=== PATIENT | male | born 1990 | race African-American/Black ===

== ENCOUNTER 2016-08-24 07:09 | Emergency (ER) | payer MEDICAID ==
[~2016-08-24] VITALS: Ht 172.7 cm; Wt 72.5 kg
[~2016-08-24 07:09] MED LIST: CYCL-36 PO
[2016-08-24 07:11] VITALS: BP 138/76; PULSE 64; RESP 15; TEMP 98.1; O2SAT 97
[2016-08-24] MEDS ORDERED: CYCL1TAB29 PO (08:04)
[2016-08-24] MEDS ORDERED: IBUP800T23 PO (08:04)
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
== END 2016-08-24 08:26 | disposition home or self-care (01) ==
LOC: NEPB 07:09
DX: S66.811A Strain of other specified muscles, fascia and tendons at wrist and hand level, right hand, initial encounter (principal); W51.XXXA Accidental striking against or bumped into by another person, initial encounter; Y93.89 Activity, other specified; Y92.9 Unspecified place or not applicable; Z72.0 Tobacco use
CPT/HCPCS: 99283

== ENCOUNTER 2017-02-04 08:40 | Emergency (ER) | payer MEDICAID, OTHER ==
[~2017-02-04 08:40] MED LIST changes: +CYCL1TAB29 PO; +IBUP800T23 PO
[2017-02-04] MEDS ORDERED: TETANUS/DIPHTHERIA TOXOID ADULT 0.5 ML VIAL IM ONE (09:30)
[2017-02-04] MEDS ORDERED: IBUPROFEN 800 MG TAB PO ONE (09:30)
[2017-02-04] MEDS ORDERED: CEPH-460 PO (09:33)
[2017-02-04] MEDS ORDERED: IBUP-232 PO (09:33)
--- NOTE | 2017-02-04 09:33 | PD ---
HPI Chief Complaint: Laceration/Skin Injury Time Seen by Provider: 09:31 Travel History International Travel<30 days: No Contact w/Intl Traveler<30days: No Traveled to known affect area: No History of Present Illness HPI 26-year-old male presents to department for evaluation of a laceration to the right wrist sustained when he picked up a fiberglass TV. Patient reports pain at site. No alterations in sensation. Pain exacerbated with movement. No other symptoms to report. He is uncertain of his tetanus status. [facility] Past Medical History Medical History: Denies Significant Hx Diminished Hearing: No Immunizations Current: Yes Past Surgical History Other Surgery: Yes (LACERATION REPAIR TO L LEG AND HEAD ) Social History Alcohol Use: Yes (OCC) Tobacco Use: Yes (07/27 PPD) Substance Use: Yes (marijuana) Allergies-Medications (Allergen,Severity, Reaction): Coded Allergies: Shrimp (Verified Allergy, Severe, SWELLING, 08/24/16) Reported Meds & Prescriptions Reported Meds & Active Scripts Active Ibuprofen 600 Mg Tab 600 Mg PO Q8HR PRN Keflex (Cephalexin) 500 Mg Cap 500 Mg PO Q6H 5 Days Flexeril (Cyclobenzaprine HCl) 10 Mg Tab 10 Mg PO TID PRN 7 Days Ibuprofen 800 Mg Tab 800 Mg PO Q6HR PRN Flexeril (Cyclobenzaprine HCl) 10 Mg Tab 10 Mg PO TID PRN Review of Systems Except as stated in HPI: all other systems reviewed are Neg Physical Exam Narrative GENERAL: Well-nourished, well-developed male patient in no acute distress SKIN: Focused skin assessment warm/dry. One and half centimeter laceration on the anterior aspect of the lateral right wrist. Bleeding is controlled. HEAD: Normocephalic. EYES: No scleral icterus. No injection or drainage. NECK: Supple, trachea midline. No JVD or lymphadenopathy. CARDIOVASCULAR: Regular rate and rhythm without murmurs, gallops, or rubs. RESPIRATORY: Breath sounds equal bilaterally. No accessory muscle use. MUSCULOSKELETAL: No cyanosis, or edema. Patient has full flexion and extension of all the digits of the right upper extremity. No limitations in range of motion of the wrist. Sensation intact his affected extremity. Cap refill within normal limits. BACK: Nontender without obvious deformity. No CVA tenderness. Data Data Orders Tetanus/Diphtheria Tox Adult (Tetanus/Di (02/04/17 09:30) Ibuprofen (Motrin) (02/04/17 09:30) MDM Medical Decision Making Medical Screen Exam Complete: Yes Emergency Medical Condition: Yes Medical Record Reviewed: Yes Differential Diagnosis Laceration superficial versus deep versus tendon injury versus abrasion versus avulsion Narrative Course 26-year-old male presents to emergency department for evaluation of right wrist injury. Patient does have a 1-1/2 cm laceration. This was cleansed and approximated. Patient tolerated this well. He'll be discharged home with Keflex as this was done on a garbage route. He agrees return immediately if any acute worsening symptoms Procedures Procedure Narrative LACERATION LOCATION: Right wrist LENGTH: 1-1/2 cm NUMBER OF STITCHES/RONEL: 2 ronel REPAIR: The area of the laceration was prepped with Betadine and sterilely draped The wound was copiously irrigated and explored without evidence of foreign body, tendon injury or neurovascular injury. The wound was closed using ronel. This was a [single layer repair. A sterile dressing was applied. The patient was advised to keep the dressing clean and dry. Patient tolerated the procedure well. Sepsis Criteria Sepsis Criteria (SIRS+source): Infect source susp/known Diagnosis Primary Impression: Wrist laceration Qualified Code: S61.511A - Wrist laceration, right, initial encounter Referrals: Primary Care Physician Patient Instructions: General Instructions, Laceration (ED), Staple Care (ED) Departure Forms: Tests/Procedures, Work Release Enter return to work date: Feb 05, 2017 Additional Instructions: Keep the area clean and dry Keep it covered when you are at work You may shower Wash it twice a day with warm soapy water, pat it dry, apply antibiotic ointment and a Band-Aid Return immediately to the emergency department with any acute worsening of symptoms. Ronel are to be removed in 10 days. Med/Other Pt SpecificInfo: Prescription(s) given Scripts Ibuprofen 600 Mg [id number] Mg PO Q8HR PRN (PAIN) #30 TAB Ref 0 Prov:Yuridia Atkinson 02/04/17 Cephalexin (Keflex)500 Mg [id number] Mg PO Q6H 5 Days Ref 0 Prov:Yuridia Atkinson 02/04/17 Disposition: 01 DISCHARGE HOME Condition: Stable Yuridia Atkinson Feb 04, 2017 09:33
== END 2017-02-04 09:53 | disposition home or self-care (01) ==
LOC: NEPK 08:40
DX: S61.511A Laceration without foreign body of right wrist, initial encounter (principal); F17.200 Nicotine dependence, unspecified, uncomplicated; Z79.899 Other long term (current) drug therapy; Z23 Encounter for immunization; W22.8XXA Striking against or struck by other objects, initial encounter
CPT/HCPCS: 12001; 90471; 90714

== ENCOUNTER 2017-02-16 13:24 | Emergency (ER) | payer MEDICAID, OTHER ==
[~2017-02-16] VITALS: Ht 170.2 cm; Wt 76.0 kg
[~2017-02-16 13:24] MED LIST changes: +CEPH-460 PO; +IBUP-232 PO
[2017-02-16 13:26] VITALS: BP 123/78; PULSE 73; RESP 15; TEMP 98.7; O2SAT 100
--- NOTE | 2017-02-16 14:16 | PD ---
HPI Chief Complaint: Wound/Suture/Staple Re-Check Time Seen by Provider: 14:00 Travel History International Travel<30 days: No Contact w/Intl Traveler<30days: No Traveled to known affect area: No History of Present Illness HPI 26-year-old male percents to have ronel removed from his right upper extremity. Patient was treated in the emergency department approximately 10 days ago. He has no current complaint he is just here for suture removal. [facility] Past Medical History Medical History: Denies Significant Hx Diminished Hearing: No Immunizations Current: Yes Tetanus Vaccination: < 5 Years Influenza Vaccination: No Past Surgical History Other Surgery: Yes (LACERATION REPAIR TO L LEG AND HEAD ) Social History Alcohol Use: Yes (OCC) Tobacco Use: Yes (1/2 PPD) Substance Use: Yes (marijuana) Allergies-Medications (Allergen,Severity, Reaction): Coded Allergies: Shrimp (Verified Allergy, Severe, SWELLING, 02/16/17) Reported Meds & Prescriptions Reported Meds & Active Scripts Active No Active Prescriptions or Reported Medications Review of Systems Except as stated in HPI: all other systems reviewed are Neg Physical Exam Narrative GENERAL: Well-nourished, well-developed patient. SKIN: Focused skin assessment warm/dry. 2 cm well-healed laceration right upper extremity distal aspect of forearm with [address] No evidence of infection. HEAD: Normocephalic. EYES: No scleral icterus. No injection or drainage. NECK: Supple, trachea line. Musculoskeletal: Right upper extremity 2 cm well-healed laceration right upper extremity distal aspect of forearm with [address] No evidence of infection. Data Data Last Documented VS Vital Signs Date Time Temp Pulse Resp B/P Pulse Ox O2 Delivery O2 Flow Rate FiO2 02/16/17 13:26 98.7 73 15 123/78 100 MDM Medical Decision Making Medical Screen Exam Complete: Yes Emergency Medical Condition: Yes Differential Diagnosis Suture removal, wound recheck, clinically ruled out wound infection Narrative Course 26-year-old male percents to have ronel removed from his right upper extremity. Patient was treated in the emergency department approximately 10 days ago. He has no current complaint he is just here for suture removal. 2 ronel were removed. The wound edges are well approximated and healed. No evidence of wound infection. Procedures Procedure Narrative Staple removal performed and right upper extremity. 2 ronel removed. Wound edges well approximated and healed. No evidence of infection. Diagnosis Primary Impression: Removal of staple Referrals: Primary Care Physician Scripts No Active Prescriptions or Reported Meds Disposition: 01 DISCHARGE HOME Condition: Stable Susan Pratt Feb 16, 2017 14:16
== END 2017-02-16 14:30 | disposition home or self-care (01) ==
LOC: NEPK 13:24
DX: Z48.02 Encounter for removal of sutures (principal); F17.200 Nicotine dependence, unspecified, uncomplicated
CPT/HCPCS: 99281